=== PATIENT | female | born 1990 | race Caucasian/White ===

== ENCOUNTER 2016-08-07 21:04 | Emergency (ER) | payer MEDICAID ==
[~2016-08-07] VITALS: Ht 177.8 cm; Wt 73.4 kg
[2016-08-07 21:07] VITALS: BP 142/92
[2016-08-07] MEDS ORDERED: LIDOCAINE 1%, 20ML ONE (22:16)
[2016-08-07] MEDS ORDERED: LIDOCAINE 1%, 20ML INFIL ONE (22:30)
== END 2016-08-07 23:49 ==
LOC: ED 23:45
DX: S61.214A Laceration without foreign body of right ring finger without damage to nail, initial encounter (principal); W25.XXXA Contact with sharp glass, initial encounter; Y93.89 Activity, other specified; Y92.89 Other specified places as the place of occurrence of the external cause; Y99.8 Other external cause status
CPT/HCPCS: 12002

== ENCOUNTER 2019-11-03 09:32 | Outpatient (CLI) | payer BC ==
[~2019-11-03] VITALS: Ht 175.3 cm; Wt 139.5 kg
[2019-11-03 10:13] VITALS: BP 135/77
[2019-11-03 11:27] LABS: AMPHETAMINE SCREEN, URINE Negative (Negative); BARBITURATE SCREEN, URINE Negative (Negative); BENZODIAZEPINE SCREEN, URINE Negative (Negative); CANNABINOID SCREEN, URINE Negative (Negative); COCAINE SCREEN, URINE Negative (Negative); METHADONE SCREEN, URINE Negative (Negative); OPIATE SCREEN, URINE Negative (Negative)
[2019-11-03] MEDS ORDERED: PREN1TAB60 PO (12:04)
== END 2019-11-03 12:35 | disposition home or self-care (01) ==
LOC: LDOP 09:32
PROVIDERS: ATTEND Obstetrics & Gynecology
DX: O26.893 Other specified pregnancy related conditions, third trimester (principal); Z3A.33 33 weeks gestation of pregnancy; Z91.81 History of falling
CPT/HCPCS: 59025; 76819; 80307; 99201; G0463

== ENCOUNTER 2019-11-28 10:16 | Outpatient (CLI) | payer BC ==
[~2019-11-28] VITALS: Ht 175.3 cm; Wt 144.5 kg
[~2019-11-28 10:16] MED LIST: PREN1TAB60 PO
[2019-11-28 10:31] VITALS: BP 133/80
[2019-11-28 11:16] LABS: BASOPHILS # (AUTO) 0.05 x10^3/uL (0-0.1); BASOPHILS % (AUTO) 0 % (0-1); EOSINOPHILS # (AUTO) 0.26 x10^3/uL (0-0.4); EOSINOPHILS % (AUTO) 2 % (1-7); LYMPHOCYTES % (AUTO) 20 % (22-44); MD NO; MEAN CORPUSCULAR HEMOGLOBIN 32.3 pg (27.0-34.8); MEAN CORPUSCULAR HGB CONC 33.7 g/dL (32.4-35.8); MEAN PLATELET VOLUME 8.5 fL (7.4-10.4); MONOCYTES # (AUTO) 1.25 x10^3/uL (0.2-0.8); MONOCYTES % (AUTO) 7 % (2-9); NEUTROPHILS # (AUTO) 12.07 x10^3/uL (1.8-6.8); NEUTROPHILS % (AUTO) 71 % (42-75); PLATELET COUNT 222 x10^3/uL (130-400); RED BLOOD COUNT 4.22 x10^6/uL (3.82-5.3); RED CELL DISTRIBUTION WIDTH 13.5 % (9.6-15.2)
[2019-11-28 11:24] LABS: CREATININE,URINE RANDOM 50.1 mg/dL
[2019-11-28 11:27] LABS: MICROSCOPIC INDICATED
[2019-11-28 11:29] LABS: ALBUMIN 2.6 g/dL (3.4-5.0); ANION GAP 7 mmol/L (5-15); CALCIUM 8.9 mg/dL (8.5-10.1); CHLORIDE 108 mmol/L (98-107)
[2019-11-28 11:34] LABS: ALANINE AMINOTRANSFERASE 26 U/L (12-78); ALKALINE PHOSPHATASE 125 U/L (45-117); BILIRUBIN,TOTAL 0.2 mg/dL (0.2-1.0); CREATININE 0.51 mg/dL (0.55-1.02); TOTAL PROTEIN 6.5 g/dL (6.4-8.2)
== END 2019-11-28 12:30 | disposition home or self-care (01) ==
LOC: LDOP 10:16
PROVIDERS: ATTEND Obstetrics & Gynecology
DX: O16.3 Unspecified maternal hypertension, third trimester (principal); Z3A.37 37 weeks gestation of pregnancy
CPT/HCPCS: 36415; 59025; 80053; 81001; 82570; 84156; 84550; 85025

== ENCOUNTER 2019-12-15 20:08 | Inpatient (IN) | payer BC ==
[~2019-12-15] VITALS: Ht 175.3 cm; Wt 145.0 kg
[2019-12-15] MEDS ORDERED: OXYTOCIN 30U/ 0.9% NaCL 500ML 500 ML IV ONE (21:15)
[2019-12-15] MEDS ORDERED: D5%-LACTATED RINGERS 1,000 ML IV SCH (21:15)
[2019-12-15] MEDS ORDERED: OXYTOCIN 30U/ 0.9% NaCL 500ML 500 ML IV PRN (21:15)
[2019-12-15] MEDS ORDERED: NEWBORN KIT ONE (21:22)
[2019-12-15] MEDS ORDERED: LIDOCAINE 1%, 20ML ONE (21:22)
[2019-12-15] MEDS ORDERED: MISOPROSTOL 25 MCG TABLET ONE (21:23)
[2019-12-15] MEDS ORDERED: OXYTOCIN 30U/ 0.9% NaCL 500ML 500 ML ONE (21:23)
[2019-12-15] MEDS ORDERED: MISOPROSTOL 200 MCG TABLET ONE (21:23)
[2019-12-15] MEDS ORDERED: FENTANYL PF 100 MCG/2ML IVPush PRN (21:30)
[2019-12-15] MEDS ORDERED: METOCLOPRAMIDE 5 MG/ML, 2ML IVPush PRN (21:30)
[2019-12-15] MEDS ORDERED: TERBUTALINE 1 MG/ML, 1ML IVPush PRN (21:30)
[2019-12-15] MEDS ORDERED: TERBUTALINE 1 MG/ML, 1ML SQ PRN (21:30)
[2019-12-15] MEDS ORDERED: FENTANYL PF 100 MCG/2ML IV PRN (21:30)
[2019-12-15] MEDS ORDERED: ONDANSETRON 2MG/ML, 2ML IVPush PRN (21:30)
[2019-12-15] MEDS: MISOPROSTOL 25 MCG TABLET VG PRN (21:31)
[2019-12-15 21:59] LABS: MEAN CORPUSCULAR HGB CONC 33.3 g/dL (32.4-35.8); MEAN PLATELET VOLUME 8.7 fL (7.4-10.4); PLATELET COUNT 212 x10^3/uL (130-400); RED BLOOD COUNT 4.25 x10^6/uL (3.82-5.3); RED CELL DISTRIBUTION WIDTH 13.4 % (9.6-15.2)
[2019-12-15 22:14] LABS: ALBUMIN 2.4 g/dL (3.4-5.0); ANION GAP 9 mmol/L (5-15); CALCIUM 8.7 mg/dL (8.5-10.1); CHLORIDE 106 mmol/L (98-107)
[2019-12-15 22:18] LABS: ALANINE AMINOTRANSFERASE 33 U/L (12-78); ALKALINE PHOSPHATASE 136 U/L (45-117); BILIRUBIN,TOTAL 0.2 mg/dL (0.2-1.0); CREATININE 0.66 mg/dL (0.55-1.02); TOTAL PROTEIN 6.4 g/dL (6.4-8.2)
[2019-12-15 22:19] LABS: BASOPHILS # (AUTO) 0.04 x10^3/uL (0-0.1); BASOPHILS % (AUTO) 0 % (0-1); EOSINOPHILS # (AUTO) 0.33 x10^3/uL (0-0.4); EOSINOPHILS % (AUTO) 2 % (1-7); LYMPHOCYTES # (AUTO) 3.73 x10^3/uL (1-3.4); LYMPHOCYTES % (AUTO) 20 % (22-44); MD SCAN; MONOCYTES # (AUTO) 1.38 x10^3/uL (0.2-0.8); MONOCYTES % (AUTO) 7 % (2-9); NEUTROPHILS # (AUTO) 13.62 x10^3/uL (1.8-6.8); NEUTROPHILS % (AUTO) 71 % (42-75)
[2019-12-15 22:29] LABS: CREATININE,URINE RANDOM 34.4 mg/dL
[2019-12-15] MEDS ORDERED: ZOLPIDEM 5MG TABLET PO PRN (22:30)
[2019-12-16] MEDS ORDERED: MISOPROSTOL 25 MCG TABLET ONE (01:26)
[2019-12-16] MEDS: MISOPROSTOL 25 MCG TABLET VG PRN (01:35)
[2019-12-16] MEDS: LACTATED RINGERS 1,000 ML IV SCH ×4 (02:05→23:56)
[2019-12-16] MEDS: OXYTOCIN 30U/ 0.9% NaCL 500ML 500 ML IV SCH (02:05)
[2019-12-16] MEDS ORDERED: FENTANYL/BUPIV./NS/PF 250 ML EPIDCONT ONE (09:38)
[2019-12-16] MEDS ORDERED: BUPIVACAINE 0.25% ONE (09:38)
[2019-12-16] MEDS ORDERED: FENTANYL/BUPIV./NS/PF 250 ML EPIDCONT SCH (10:27)
[2019-12-16] MEDS ORDERED: LACTATED RINGERS 1,000 ML IV SCH (10:27)
[2019-12-16] MEDS ORDERED: LACTATED RINGERS 1,000 ML IVBOLUS PRN (10:30)
[2019-12-16] MEDS ORDERED: EPHEDRINE 50 MG/ML, 1ML IVPush PRN (10:30)
[2019-12-16] MEDS: NICOTINE 14MG/24 HR PATCH.TD24 TD SCH (12:24)
[2019-12-16] MEDS ORDERED: ACETAMINOPHEN 325 MG TABLET ONE (17:13)
[2019-12-16] MEDS: ACETAMINOPHEN 325 MG TABLET PO PRN (17:14)
[2019-12-16 20:30] VITALS: BP 103/59
[2019-12-16] MEDS ORDERED: LACTATED RINGERS 1,000 ML INTUTE SCH (22:00)
[2019-12-16] MEDS ORDERED: LACTATED RINGERS 1,000 ML INTUTE PRN (22:00)
[2019-12-16] MEDS ORDERED: SODIUM CITRATE/CITRIC ACID 30 ML UDC PO ONE (22:30)
[2019-12-16] MEDS ORDERED: SODIUM CITRATE/CITRIC ACID 30 ML UDC ONE (22:31)
[2019-12-16] MEDS ORDERED: METOCLOPRAMIDE 5 MG/ML, 2ML ONE (22:31)
[2019-12-16] MEDS ORDERED: CEFAZOLIN 1,000 MG ONE (22:54)
[2019-12-16] MEDS ORDERED: OXYTOCIN 10 UNITS/ML, 1ML ONE (22:54)
[2019-12-16] MEDS ORDERED: ONDANSETRON 2MG/ML, 2ML ONE (22:54)
[2019-12-16] MEDS ORDERED: FENTANYL PF 100 MCG/2ML ONE (22:54)
[2019-12-16] MEDS ORDERED: HYDROmorphone 2 MG/ML, 1ML ONE (22:54)
[2019-12-16] MEDS ORDERED: LIDOCAINE-MPF 2% ,5ML ONE ×3 (23:43)
[2019-12-16] MEDS ORDERED: SODIUM CHLORIDE 0.9% PF 10ML ONE ×2 (23:43)
[2019-12-16] MEDS ORDERED: KETOROLAC 30 MG/1 ML ONE (23:43)
[2019-12-16] MEDS: KETOROLAC 30 MG/1 ML IV SCH (23:55)
[2019-12-17] MEDS ORDERED: OXYcodone/APAP 5/325MG TABLET PO PRN
[2019-12-17] MEDS ORDERED: MISOPROSTOL 200 MCG TABLET PR PRN
[2019-12-17] MEDS ORDERED: ONDANSETRON 2MG/ML, 2ML IV PRN
[2019-12-17] MEDS ORDERED: MORPHINE SULFATE 4 MG/ML, 1ML IVPush PRN
[2019-12-17] MEDS ORDERED: OXYcodone 5 MG/5 ML ORAL.SOL UDC ONE (01:02)
[2019-12-17] MEDS ORDERED: OXYcodone 5 MG/5 ML ORAL.SOL UDC PO PRN (01:30)
[2019-12-17] MEDS ORDERED: MORPHINE SULFATE 4 MG/ML, 1ML ONE (02:35)
[2019-12-17] MEDS ORDERED: KETOROLAC 30 MG/1 ML ONE (05:29)
[2019-12-17] MEDS ORDERED: OXYcodone IR 5MG TABLET ONE (05:29)
[2019-12-17] MEDS: KETOROLAC 30 MG/1 ML IV SCH ×3 (05:33→17:43)
[2019-12-17] MEDS: OXYcodone IR 5MG TABLET PO PRN ×5 (05:33→22:47)
[2019-12-17 07:20] VITALS: BP 111/72
[2019-12-17] MEDS: LACTATED RINGERS 1,000 ML IV SCH ×5 (07:56→23:56)
[2019-12-17 07:59] LABS: MEAN CORPUSCULAR HGB CONC 33.1 g/dL (32.4-35.8); MEAN PLATELET VOLUME 8.2 fL (7.4-10.4); PLATELET COUNT 181 x10^3/uL (130-400); RED BLOOD COUNT 3.73 x10^6/uL (3.82-5.3); RED CELL DISTRIBUTION WIDTH 13.5 % (9.6-15.2)
[2019-12-17] MEDS: PRENATAL VIT/IRON/FA 1 EACH TABLET PO SCH (08:19)
[2019-12-17] MEDS: SIMETHICONE 80 MG CHEW TAB PO PRN ×2 (08:19→17:43)
[2019-12-17 09:24] LABS: BASOPHILS # (AUTO) 0.04 x10^3/uL (0-0.1); BASOPHILS % (AUTO) 0 % (0-1); EOSINOPHILS # (AUTO) 0.17 x10^3/uL (0-0.4); EOSINOPHILS % (AUTO) 1 % (1-7); LYMPHOCYTES # (AUTO) 2.66 x10^3/uL (1-3.4); LYMPHOCYTES % (AUTO) 13 % (22-44); MD SCAN; MONOCYTES # (AUTO) 1.12 x10^3/uL (0.2-0.8); MONOCYTES % (AUTO) 6 % (2-9); NEUTROPHILS # (AUTO) 16.24 x10^3/uL (1.8-6.8); NEUTROPHILS % (AUTO) 80 % (42-75)
[2019-12-17] MEDS: ACETAMINOPHEN 325 MG TABLET PO PRN ×4 (09:51→22:46)
[2019-12-17] MEDS: OXYTOCIN 30U/ 0.9% NaCL 500ML 500 ML IV SCH ×2 (09:56→19:56)
[2019-12-17] MEDS: NICOTINE 14MG/24 HR PATCH.TD24 TD SCH (11:44)
[2019-12-17 12:30] VITALS: BP 123/60
[2019-12-17 16:30] VITALS: BP 136/80
[2019-12-17 20:00] VITALS: BP 125/78
[2019-12-17] MEDS: DOCUSATE 100 MG CAPSULE PO PRN (22:46)
[2019-12-18] MEDS: KETOROLAC 30 MG/1 ML IV SCH ×4 (00:27→18:00)
[2019-12-18] MEDS: OXYTOCIN 30U/ 0.9% NaCL 500ML 500 ML IV SCH ×2 (05:56→15:56)
[2019-12-18] MEDS: LACTATED RINGERS 1,000 ML IV SCH ×5 (05:56→23:56)
[2019-12-18] MEDS: OXYcodone IR 5MG TABLET PO PRN ×5 (06:18→23:03)
[2019-12-18] MEDS: SIMETHICONE 80 MG CHEW TAB PO PRN ×2 (06:18→14:28)
[2019-12-18 07:10] VITALS: BP 128/77
[2019-12-18] MEDS: PRENATAL VIT/IRON/FA 1 EACH TABLET PO SCH (08:24)
[2019-12-18] MEDS: DOCUSATE 100 MG CAPSULE PO PRN ×2 (08:24→23:02)
[2019-12-18] MEDS: ACETAMINOPHEN 325 MG TABLET PO PRN ×4 (10:27→23:02)
[2019-12-18] MEDS: NICOTINE 14MG/24 HR PATCH.TD24 TD SCH (12:45)
[2019-12-18] MEDS: IBUPROFEN 600 MG TABLET PO PRN (18:47)
[2019-12-18 20:00] VITALS: BP 121/76
[2019-12-19] MEDS: LACTATED RINGERS 1,000 ML IV SCH ×3 (01:56→11:56)
[2019-12-19] MEDS: OXYTOCIN 30U/ 0.9% NaCL 500ML 500 ML IV SCH ×2 (01:56→11:56)
[2019-12-19] MEDS: IBUPROFEN 600 MG TABLET PO PRN ×2 (03:58→10:01)
[2019-12-19] MEDS: ACETAMINOPHEN 325 MG TABLET PO PRN ×2 (03:58→10:01)
[2019-12-19] MEDS: OXYcodone IR 5MG TABLET PO PRN ×2 (04:02→10:02)
[2019-12-19 08:00] VITALS: BP 133/86
[2019-12-19] MEDS: PRENATAL VIT/IRON/FA 1 EACH TABLET PO SCH (10:01)
[2019-12-19] MEDS: DOCUSATE 100 MG CAPSULE PO PRN (10:01)
[2019-12-19] MEDS ORDERED: OXYC-302 PO (10:54)
[2019-12-19] MEDS ORDERED: IBUP-1222 PO (10:54)
[2019-12-19] MEDS ORDERED: DIPH,PERTUSS(ACELL),TET VAC/PF NC IM-VACC ONE ×2 (12:00)
[2019-12-19] MEDS ORDERED: MEASLES,MUMPS&RUBELLA VACC/PF 0.5 ML SQ-VACC ONE ×2 (12:00)
[2019-12-19] MEDS: NICOTINE 14MG/24 HR PATCH.TD24 TD SCH (12:03)
== END 2019-12-19 12:30 | disposition home or self-care (01) | DRG 787 ==
LOC: LDIP 20:08 → 2NW 12-17 06:15
PROVIDERS: ADMIT Obstetrics & Gynecology; ATTEND Obstetrics & Gynecology
PROC: 10D00Z1 Extraction of Products of Conception, Low, Open Approach (ICD-10-PCS; principal; 2019-12-16)
PROC: 3E0234Z Introduction of Serum, Toxoid and Vaccine into Muscle, Percutaneous Approach (ICD-10-PCS; 2019-12-19)
DX: O40.3XX0 Polyhydramnios, third trimester, not applicable or unspecified (principal); O99.354 Diseases of the nervous system complicating childbirth; Z3A.39 39 weeks gestation of pregnancy; Z37.0 Single live birth; G43.909 Migraine, unspecified, not intractable, without status migrainosus; O76 Abnormality in fetal heart rate and rhythm complicating labor and delivery; O62.2 Other uterine inertia; O12.14 Gestational proteinuria, complicating childbirth; Z20.828 Contact with and (suspected) exposure to other viral communicable diseases; O13.4 Gestational [pregnancy-induced] hypertension without significant proteinuria, complicating childbirth; O61.9 Failed induction of labor, unspecified; O69.81X0 Labor and delivery complicated by cord around neck, without compression, not applicable or unspecified; Z23 Encounter for immunization; Z90.49 Acquired absence of other specified parts of digestive tract; Z90.89 Acquired absence of other organs
CPT/HCPCS: 36415; J3490; J7121; 80053; 82570; 82803; 84156; 84550; 85025; 86592; 86850; 86900; 87635; 90715; G0378; J0690; J1170; J1885; J2405; J3010; J2270; J2590; J7120